=== PATIENT | female | born 1950 | race Caucasian/White ===

== ENCOUNTER 2021-09-07 06:54 | Inpatient (IN) | payer OTHER ==
[~2021-09-07] VITALS: Ht 162.6 cm; Wt 70.3 kg
--- NOTE | ~2021-09-07 | EMS ---
[place] [address] EMS Patient Care Report Name: ZIGGY CAGEJuan Schuster Room #: 170-12 ADM IN M.R.#: [id number] Admission: 09/07/21 Attend Phys: Alba Levine MD Discharge: Date of : 46 Report #: [id number] THIS REPORT FOR: //name// Report Transmitted: 09/07/2021 09:46 EMS Care Summary [place], [place] Incident [id number] @ 09/07/2021 06:07 Incident Location [address] [place] [address] Patient MARTIN WOODWARD Female, 71 Years 1950 Patient Address [address] [place] [address] Patient History None Reported, Patient Allergies No known allergies, Patient Medications None Reported, Chief Complaint Cardiac Arrest Disposition Transported No Lights/[place] Dispatch Reason Cardiac Arrest/ Transported To [facility] Narrative M36 and P28 and c120 were dispatched to a cardiac arrest. M36 arrived on scene to find one female pt lying supine in the middle of her living room with P28 performing CPR with an AED. Lead tech moved pad leads over to Zoll monitor. Pt was in asystole. Pt was placed onto the Autopulse. Pt [place] [address] EMS Patient Care Report Name: BAUTISTA CAGE Room #: 170-12 ADM IN ..#: [id number] Admission: 09/07/21 Attend Phys: Alba Levine MD Discharge: Date of : 46 Report #: [id number] and a Blue IO placed. Pt was left on the autopulse for aprox. 20 min pausing for rhythm checks every 2 min. Pt was given 1mg Epi 4x. At aprox. 0635 ROSC was achieved in the field. Pt was prepped for transport and moved into the unit. Pt still had pulses and good lung sounds with airway in place after moving PT. Pt was transported to [facility]. Pt care was transferred to CODE team at [facility]. M36 cleared call Initial Vitals @06:16P: 0,R: 0,BP: 0/0,Pain: 0/10,GCS: 3,SpO2: 0,Revised Trauma: 0, @06:23P: 0,R: 0,EtCO2: 33, @06:18P: 0,R: 0,Pain: 0/10, @06:40P: 93,R: 8,BP: 129/80,Pain: 0/10,GCS: 3,EtCO2: 61,Revised Trauma: 6, @06:42P: 100,Pain: 0/10,GCS: 3,EtCO2: 55, @06:37P: 124,Pain: 0/10,EtCO2: 23, @06:31P: 0,R: 0,GCS: 3,EtCO2: 39, @06:50R: 12,Pain: 0/10,GCS: 3,EtCO2: 56, @06:36P: 100,Pain: 0/10,GCS: 3,EtCO2: 38, @06:39P: 181,R: 6,Pain: 0/10,GCS: 3,EtCO2: 57, Assessments @06:15MENTAL:Unresponsive,SKIN:HEENT:Eyes: Left Pupil: 4-mm,Eyes: Right Pupil: 4-mm,LUNG SOUNDS:General: No Abnormalities,Left Upper: No Abnormalities,Right Upper: No Abnormalities,Left Lower: No Abnormalities,Right Lower: No Abnormalities,ABDOMEN:General: No Abnormalities,Left Upper: No Abnormalities,Right Upper: No Abnormalities,Left Lower: No Abnormalities,Right Lower: No Abnormalities,PELVIS//GI:No Abnormalities,EXTREMITIES:Left Arm: No Abnormalities,Right Arm: No Abnormalities,Left Leg: No Abnormalities,Right Leg: No Abnormalities,PULSE:Radial: 2+ Normal,NEURO:No Abnormalities, Impression Cardiac arrest Procedures @06:20 Epinephrine 1:10 - 1 Milligrams (mg) - Intravenous (IV) Response: Improved @06:30 Epinephrine 1:10 - 1 Milligrams (mg) - Intravenous (IV) Response: Improved @06:15 Response: UnchangedSucceeded @06:34 Epinephrine 1:10 - 1 Milligrams (mg) - Intravenous (IV) Response: Improved @06:25 Epinephrine 1:10 - 1 Milligrams (mg) - Intravenous (IV) Response: Improved @06:42 12-Lead ECG @06:15 ALS Assessment Response: UnchangedSucceeded @06:19 IV Therapy - Saline Lock 600cc (18 ga) Site: Antecubital-Left Response: UnchangedSucceeded [facility] [address] [place] [address] EMS Patient Care Report Name: BAUTISTA CAGE Room #: 170-12 ADM IN M.R.#: [id number] Admission: 09/07/21 Attend Phys: Alba Levine MD Discharge: Date of : 46 Report #: [id number] @[id number] Response: ImprovedSucceeded @06:19 Intraosseous - Normal Saline (.9% NaCl) 10cc (EZ-IO (Blue 25mm)) Site: ZI-Rgcxm-Ubsis Proximal Response: UnchangedSucceeded @06:43 Stretcher Response: Unchanged Timeline BLUEPRINT REPRODUCER,iGEL Response: ImprovedSucceeded, 06:04,Call Received 06:04,Dispatch Notified 06:07,Dispatched 06:09,En Route 06:13,On Scene 06:15,At Patient 06:15,ALS Assessment,Response: UnchangedSucceeded, 06:15,Response: UnchangedSucceeded, 06:16,BP: 0/0 M,PULSE: 0,RR: 0 R,SPO2: 0 Ox,ETCO2: ,BG: ,PAIN: 0,GCS: 3, 06:18,BP: / M,PULSE: 0,RR: 0 R,SPO2: Ox,ETCO2: ,BG: ,PAIN: 0,GCS: , 06:19,IV Therapy - Saline Lock 600cc 18 ga Site: Antecubital-Left,Response: UnchangedSucceeded, 06:19,Intraosseous - Normal Saline (.9% NaCl) 10cc EZ-IO (Blue 25mm) Site: QF-Bcbhz-Ccijh Proximal,Response: UnchangedSucceeded, 06:20,Epinephrine 1:10 - 1 Milligrams (mg) - Intravenous (IV),Response: Improved 06:23,BP: / M,PULSE: 0,RR: 0 R,SPO2: Ox,ETCO2: 33 ,BG: ,PAIN: ,GCS: , 06:25,Epinephrine 1:10 - 1 Milligrams (mg) - Intravenous (IV),Response: Improved 06:30,Epinephrine 1:10 - 1 Milligrams (mg) - Intravenous (IV),Response: Improved 06:31,BP: / M,PULSE: 0,RR: 0 R,SPO2: Ox,ETCO2: 39 ,BG: ,PAIN: ,GCS: 3, 06:34,Epinephrine 1:10 - 1 Milligrams (mg) - Intravenous (IV),Response: Improved 06:36,BP: / M,PULSE: 100,RR: R,SPO2: Ox,ETCO2: 38 ,BG: ,PAIN: 0,GCS: 3, 06:37,BP: / M,PULSE: 124,RR: R,SPO2: Ox,ETCO2: 23 ,BG: ,PAIN: 0,GCS: , 06:39,BP: / M,PULSE: 181,RR: 6 R,SPO2: Ox,ETCO2: 57 ,BG: ,PAIN: 0,GCS: 3, 06:40,BP: 129/80 M,PULSE: 93,RR: 8 R,SPO2: Ox,ETCO2: 61 ,BG: ,PAIN: 0,GCS: 3, 06:42,12-Lead ECG, 06:42,BP: / M,PULSE: 100,RR: R,SPO2: Ox,ETCO2: 55 ,BG: ,PAIN: 0,GCS: 3, 06:43,Stretcher,Response: Unchanged 06:47,Depart Scene 06:50,BP: / M,PULSE: ,RR: 12 R,SPO2: Ox,ETCO2: 56 ,BG: ,PAIN: 0,GCS: 3, 06:52,At Destination 07:07,Call Closed Disclaimer v1.1 Copyright 2020 [employer] This EMS Care Summary contains data elements from the applicable legal record (which may be displayed differently). It is designed to provide pertinent information for the following purposes: continuity of care, clinical quality, and state data reporting. The complete legal record is available to ED staff [facility] [address] [place] [address] EMS Patient Care Report Name: BAUTISTA CAGE Room #: 170-12 ADM IN .R.#: [id number] Admission: 09/07/21 Attend Phys: Alba Levine MD Discharge: Date of : 46 Report #: [id number] and administrators of the receiving hospital in [facility]'s Patient Tracker. All data is provided "as is."
[2021-09-07 07:26] LABS: HEMATOCRIT 40.2 % (37.0-47.0); HEMOGLOBIN 12.4 gm/dL (12.0-15.0); MCH 28.7 pg (26.0-34.0); MCHC 30.8 g/dL (28.0-37.0); MCV 93.2 fL (80.0-100.0); PLATELET COUNT 432 thou/uL (150-400); RBC 4.31 mil/uL (4.20-5.00); RDW 13.3 % (10.5-14.5)
[2021-09-07 07:37] LABS: CALCIUM 9.3 mg/dL (8.5-10.1); CREATININE 1.4 mg/dL (0.6-1.0); POTASSIUM 3.6 mmol/L (3.5-5.1)
[2021-09-07 07:39] LABS: BE(vivo) -15.2 mmol/L (-2 to +3); HCO3 13.2 mmol/L (22.0-26.0); PCO2 40.2 mmHg (35.0-45.0); sO2 98.6 % (92.0-98.0)
[2021-09-07 07:40] LABS: pH 7.133 (7.360-7.450)
--- NOTE | 2021-09-07 07:45 | NUR ---
PT HAD SMALL BM NOTED, NO BLOOD NOTED. PT CLEANED UP. REDNESS AND MILD BRUISING NOTED TO LEFT KNEE/BELL REGION. MINOR SKIN TEARS NOTED TO LEFT BREAST. NO OTHER OBVIOUS INJURIES NOTED.
[2021-09-07 07:48] LABS: ALBUMIN 2.2 g/dL (3.4-5.0); TOTAL BILIRUBIN 0.2 mg/dL (0.2-1.0); TOTAL PROTEIN 7.1 g/dL (6.4-8.2)
[2021-09-07 07:50] LABS: URINE BILIRUBIN NEGATIVE (Negative); URINE BLOOD 3+ (Negative); URINE CLARITY CLOUDY; URINE COLOR YELLOW; URINE GLUCOSE-RANDOM* 1+ (Negative); URINE KETONES TRACE (Negative); URINE LEUKOCYTES-REFLEX NEGATIVE (Negative); URINE NITRITE-REFLEX NEGATIVE (Negative); URINE PROTEIN (DIPSTICK) 2+ (Negative); URINE SPECIFIC GRAVITY >= 1.030 (1.005-1.035); URINE UROBILINOGEN 0.2 E.U./dl (0.2-1.0)
[2021-09-07 07:52] LABS: INR 1.8; PROTIME 18.9 Seconds (9.3-11.4)
[2021-09-07 08:01] LABS: APTT 85.7 Seconds (24.5-32.8)
[2021-09-07 08:08] LABS: ABSOLUTE NEUTROPHILS 22.3 thou/uL (1.4-8.2); METAMYELOCYTES 2 %; PLATELET ESTIMATE NORMAL
[2021-09-07 08:09] LABS: CASTS None Seen /LPF (None Seen); SQUAMOUS 0-3 Few /LPF (0-3)
[2021-09-07 08:10] LABS: AMORPHOUS URATES Moderate /LPF (None Seen)
--- NOTE | 2021-09-07 09:42 | NUR ---
PT STARTED ON VERSED DRIP FOR COMFORT. PUPILS REMAIN NONREACTIVE. PT HAVING INTERMITTENT INVOLUNTARY MOVEMENTS BILATERALLY
--- NOTE | 2021-09-07 10:30 | EKG ---
[address] [place] [address] ELECTROCARDIOGRAM REPORT Name: KAITLINGERHARDSIABAUTISTA Mariely Room #: 170-12 ADM IN .R.#: [id number] Admission: 09/07/21 Attend Phys: Alba Levine MD Discharge: Date of : 46 Report #: [id number] [facility] ED Test Date: 2021-09-07 Test Time: 07:05:21 Pat Name: BAUTISTA CAGE Department: Room: 170 Gender: F Client Finance Analyst: WILLIAM : 1950 Requested By: Tom Easley Order Number: [id number] MD: Vinh Fernandez Measurements Intervals [place] Rate: 108 P: 0 AK: 49 QRS: -71 QRSD: 132 T: -49 QT: 328 QTc: 440 Interpretive Statements Atrial fibrillation Right bundle branch block Nonspecific ST segment abnormalities No previous ECG available for comparison Electronically Signed On 09-07-2021 10:30:37 FACTORY EXPERT by Vinh Fernandez [email or web address] <ELECTRONICALLY SIGNED> By: Vinh Fernandez MD 09/07/21 1030 0705 0705 Vinh Fernandez MD /EPI
[2021-09-07 18:00] VITALS: BP 124/75
--- NOTE | 2021-09-07 19:05 | NUR ---
REPORT GIVEN TO AGUILA FROST AT THIS TIME
--- NOTE | 2021-09-07 19:25 | NUR ---
4 MG OF MORPHINE IV PUSH PER DR RIDDLE DIRECTIONS, POST EXTUBATION
--- NOTE | 2021-09-07 19:37 | NUR ---
TIME OF 1933. CONFIRMED BY MYSELF AND PHYSICIAN.
== END 2021-09-07 19:34 | DRG 208 ==
LOC: ER 06:54 → EROBS 09:58
PROVIDERS: Emergency Medicine; ADMIT Internal Medicine; ATTEND Internal Medicine
DX: J18.9 Pneumonia, unspecified organism (principal); J96.01 Acute respiratory failure with hypoxia; N17.0 Acute kidney failure with tubular necrosis; N39.0 Urinary tract infection, site not specified; E11.65 Type 2 diabetes mellitus with hyperglycemia; I10 Essential (primary) hypertension; G35 Multiple sclerosis; I46.9 Cardiac arrest, cause unspecified; Z66 Do not resuscitate; D72.829 Elevated white blood cell count, unspecified; Z20.822 Contact with and (suspected) exposure to COVID-19; Z88.0 Allergy status to penicillin; Z79.899 Other long term (current) drug therapy; Z51.5 Encounter for palliative care